=== PATIENT | female | born 1975 | race Caucasian/White ===

== ENCOUNTER → 2017-03-07 | Outpatient (CLI) | payer OTHER ==
[~2017-03-07] MED LIST: MOTRIN800 MG PO
== END | disposition home or self-care (01) ==
LOC: US 03-03 15:00
DX: N83.201 Unspecified ovarian cyst, right side (principal)

== ENCOUNTER → 2017-08-11 | Outpatient (CLI) | payer OTHER | LOC: CT 13:57 | DX: M54.2 Cervicalgia (principal) ==

== ENCOUNTER 2017-08-27 10:11 | Emergency (ER) | payer OTHER ==
[~2017-08-27] VITALS: Wt 63.5 kg
[2017-08-27] MEDS ORDERED: CLINDAMYCIN HC300 MG PO (10:32)
[2017-08-27] MEDS ORDERED: NORCO 5-325 TA1 EACH PO (10:32)
[2017-08-27] MEDS ORDERED: Motrin,Rufen800 MG PO (10:32)
== END 2017-08-27 10:46 | disposition home or self-care (01) ==
LOC: ED 10:11
DX: K08.89 Other specified disorders of teeth and supporting structures (principal)

== ENCOUNTER → 2020-01-13 | Outpatient (CLI) | payer OTHER ==
[~2020-01-13] MED LIST changes: +CLINDAMYCIN HC300 MG PO; +Motrin,Rufen800 MG PO; +NORCO 5-325 TA1 EACH PO
== END | disposition home or self-care (01) ==
LOC: MAMMO 14:00
PROVIDERS: ATTEND Physician Assistant
DX: Z12.31 Encounter for screening mammogram for malignant neoplasm of breast (principal)

== ENCOUNTER → 2023-09-20 | Outpatient (CLI) | payer OTHER | END | disposition home or self-care (01) | LOC: RAD 16:44 | PROVIDERS: ATTEND Chiropractor | DX: M47.817 Spondylosis without myelopathy or radiculopathy, lumbosacral region (principal); M48.061 Spinal stenosis, lumbar region without neurogenic claudication ==